=== PATIENT | female | born 1990 | race Hispanic/Latino ===

== ENCOUNTER 2025-07-22 13:32 | Emergency (ER) | payer SELFPAY ==
[2025-07-22] MEDS ORDERED: Acetaminophen 500 MG TAB ONE (14:10)
[2025-07-22] MEDS ORDERED: Ibuprofen 200 MG TAB ONE (14:10)
[2025-07-22 14:41] LABS: #Basophils Less than 0.03 10x3/uL (0.0-0.2); #Eosinophils 0.13 10x3/uL (0.0-0.5); #Monocytes 0.30 10x3/uL (0.0-1.1); #Neutrophils 4.27 10x3/uL (1.5-8.4); %Basophils 0.3 % (0.0-2.0); %Eosinophils 1.8 % (0.0-6.0); %Lymphocytes 34.2 % (18.0-47.0); %Monocytes 4.2 % (0.0-10.0); %Neutrophils 59.4 % (40.0-75.0); Hematocrit 42.4 % (34.9-44.5); Hemoglobin 14.3 g/dL (12.0-15.5); Mean Corpuscular Hemoglobin 30.3 pg (27.0-33.0); Mean Corpuscular Volume 89.8 fL (81.6-98.3); Platelet Count 266 10x3/uL (150-450); Red Blood Cell (RBC) Count 4.72 10x6/uL (3.90-5.03); White Blood Cell (WBC) Count 7.19 10x3/uL (3.5-10.5)
[2025-07-22 14:49] LABS: BHCG - Serum Negative (NEGATIVE); Pregs Control Background? CLEAR/WHITE (CLR/WHITE); Pregs Control Bar Appear? YES (CONTROL BAR)
[2025-07-22 14:56] LABS: ALT (SGPT) 11 U/L (Less than 34); AST (SGOT) 18 U/L (11-34); Albumin 4.3 g/dL (3.1-4.5); Alkaline Phosphatase 64 U/L (40-110); Anion Gap 13 mmol/L (10-20); BUN (Urea Nitrogen) 8 mg/dL (7.0-18.7); Bilirubin, Total 0.6 mg/dL (0.3-1.2); Calc. Creatinine Clearance 0 mL/min (70-130); Calcium 9.1 mg/dL (7.8-10.44); Carbon Dioxide 23 mmol/L (22-29); Chloride 107 mmol/L (98-107); Globulin 3.0 g/dL (2.4-3.5); Glucose 80 mg/dL (70-105); Potassium 3.8 mmol/L (3.5-5.1); Sodium 139 mmol/L (136-145)
[2025-07-22 15:02] LABS: Troponin I Less than 0.010 ng/mL (< 0.028)
== END 2025-07-22 15:20 | disposition home or self-care (01) ==
LOC: CSHERS 13:32
DX: S63.502A Unspecified sprain of left wrist, initial encounter (principal); S73.101A Unspecified sprain of right hip, initial encounter; R01.1 Cardiac murmur, unspecified; W01.0XXA Fall on same level from slipping, tripping and stumbling without subsequent striking against object, initial encounter; Y99.0 Civilian activity done for income or pay; Z55.6 Problems related to health literacy
CPT/HCPCS: 36415; 71045; 72170; 80053; 84484; 84703; 85025; 85379; 93005